=== PATIENT | female | born 1935 | race American Indian/Alaskan Native ===

== ENCOUNTER 2017-01-04 13:49 | Outpatient (CLI) | payer MEDICARE ==
--- NOTE | 2017-01-04 15:02 | Cat Scan Report ---
CT HEAD WITHOUT CONTRAST: HISTORY: Headache. Serial contiguous axial images were obtained through the cranium. Intravenous contrast material was not administered. The ventricles are normal in size and appearance. There is no mass effect or midline shift. No areas of abnormally increased or decreased attenuation are seen. No mass lesion is seen. The mastoid air cells and visualized portions of the sinuses are normal. IMPRESSION: Cranial CT scan within normal limits.
== END 2017-01-04 13:50 | disposition home or self-care (01) ==
LOC: CT 13:49
PROVIDERS: ATTEND Family Medicine
DX: R51 Headache (principal)
CPT/HCPCS: 70450

== ENCOUNTER 2019-02-12 02:39 | Inpatient (IN) | payer MEDICARE ==
[2019-02-12] MEDS ORDERED: ATROVENT IH ONE (02:57)
[2019-02-12] MEDS ORDERED: PROVENTIL IH ONE (02:57)
[2019-02-12] MEDS ORDERED: LASIX IV ONE (03:02)
--- NOTE | 2019-02-12 03:04 | Emergency Department Report ---
ED Shortness of Breath HPI - General Chief Complaint: Medical Clearance Stated Complaint: SHORTNESS OF BREATH Time Seen by Provider: 02/12/19 02:42 Source: EMS, RN notes reviewed, old records reviewed Mode of arrival: Ambulatory Limitations: Altered Mental Status (dementia), Physical Limitation - History of Present Illness Initial Comments: Mrs. Huang is an 83 yo female with hx systolic heart failure, dementia, renal insufficieny, atrial fibrilllation presents with rapid decline, failure to thrive [facility] Under hospice care. Son and daughter provided hx. Mrs. Huang left the hospital last month with certain ab ilities. She was able to walk and feed herself. Since that time, she has declined. Mostly nonverbal. States "I'm fine." Mostly does recognize children. Has required 2 L NC oxygen for several months. Hospice nurse advised children to bring patient to hospital for vomiting, low oxygen and persistent cough. Oxygen 84% on 2 L NC oxygen. Placed on hospice recently by PCP Dr. Mercedes and Physician Coder Dr. Castillo. I reviewed recent cardiology consultation from December. With hx of dementia, family wished to proceed with conservative medical management. HOspice and code status were the considerations at that time. correction documentation reveals full code status. Son and daughter noted mental decline over the past 1 year with memory loss and inability to perform ADLs such as cooking. Before recent hospitalization, children performed rotating 24 hour supervised care on their own in Mrs. Huang's home. She has 8 children. She is DNR status according to children. As reported by children, no CPR, no feeding tube desired. Medical management with antibiotics is appropriate. MD Complaint: shortness of breath, cough -: Gradual, week(s) (3) Severity: moderate Consistency: constant Known History Of: congestive heart failure - Related Data Home Medications Medication Instructions Recorded Confirmed Last Taken Carvedilol [Coreg] 1 tab PO BID 11/02/18 12/22/18 12/22/18 Furosemide [Lasix TAB] 1 tab PO DAILY MDD 7 days 11/02/18 12/22/18 12/22/18 Lisinopril [Zestril TAB] 1 tab PO DAILY 11/02/18 12/22/18 12/22/18 AtorvaSTATin [Lipitor] 20 mg PO QHS 12/22/18 12/22/18 12/21/18 Donepezil [Aricept] 5 mg PO QDAY 12/22/18 12/22/18 12/21/18 K-Dur 20 meq PO DAILY 12/22/18 12/22/18 12/22/18 Previous Rx's Medication Instructions Recorded Last Taken Type Amiodarone [Cordarone 200 MG TAB] 200 mg PO DAILY #30 tablet 12/29/18 Unknown Rx Allergies Allergy/AdvReac Type Severity Reaction Status Date / Time No Known Allergies Allergy Verified 12/22/18 18:42 ED Review of Systems ROS: Stated complaint: SHORTNESS OF BREATH Other details as noted in HPI Comment: Unobtainable due to pts medical conditions (dementia, nonverbal status) ED Past Medical Hx - Past Medical History Previous Medical History?: Yes Hx Hypertension: Yes Hx CVA: Yes (TIA) Hx Heart Attack/AMI: No Hx Congestive Heart Failure: Yes Hx Liver Disease: Yes (cirrhosis) Hx Renal Disease: Yes Hx COPD: Yes Hx Dementia: Yes - Surgical History Past Surgical History?: Yes Hx Appendectomy: Yes - Social History Smoking Status: Former Smoker - Medications Home Medications: Home Medications Medication Instructions Recorded Confirmed Last Taken Type Carvedilol [Coreg] 1 tab PO BID 11/02/18 12/22/18 12/22/18 History Furosemide [Lasix TAB] 1 tab PO DAILY MDD 7 days 11/02/18 12/22/18 12/22/18 History Lisinopril [Zestril TAB] 1 tab PO DAILY 11/02/18 12/22/18 12/22/18 History AtorvaSTATin [Lipitor] 20 mg PO QHS 12/22/18 12/22/18 12/21/18 History Donepezil [Aricept] 5 mg PO QDAY 12/22/18 12/22/18 12/21/18 History K-Dur 20 meq PO DAILY 12/22/18 12/22/18 12/22/18 History Amiodarone [Cordarone 200 MG TAB] 200 mg PO DAILY #30 tablet 12/29/18 Unknown Rx ED Physical Exam - General Limitations: Physical Limitation General appearance: alert, in no apparent distress - Head Head exam: Present: atraumatic, normocephalic - Eye Eye exam: Present: normal appearance - ENT ENT exam: Present: mucous membranes moist - Neck Neck exam: Present: normal inspection. Absent: tenderness - Respiratory Respiratory exam: Present: rales, rhonchi. Absent: respiratory distress, stridor, accessory muscle use, prolonged expiratory - Cardiovascular Cardiovascular Exam: Present: regular rate, normal rhythm, normal heart sounds. Absent: rubs, gallop - GI/Abdominal GI/Abdominal exam: Present: soft, normal bowel sounds. Absent: distended, tenderness, guarding, rebound - Extremities Exam Extremities exam: Present: normal inspection, other (no edema) - Neurological Exam Neurological exam: Present: other (keeps eyes closed, will not respond to questions) - Psychiatric Psychiatric exam: Present: flat affect - Skin Skin exam: Present: warm, dry, intact, normal color. Absent: rash ED Course Vital Signs 02/12/19 02/12/19 02:44 03:10 Temperature 97.4 F L Pulse Rate 70 Pulse Rate [ 20 L Anterior Bilateral] Respiratory 22 Rate Respiratory 72 H Rate [Anterior Bilateral] Blood Pressure 159/94 O2 Sat by Pulse 99 Oximetry ED Medical Decision Making - Lab Data Result diagrams: 02/12/19 03:34 Laboratory Results - last 24 hr 02/12/19 02/12/19 03:34 03:34 Sodium 143 Potassium 4.9 Chloride 106.0 Carbon Dioxide 20 L Anion Gap 22 BUN 35 H Creatinine 2.2 H Estimated GFR 26 BUN/Creatinine Ratio 16 Glucose 80 Calcium 9.6 Total Bilirubin 1.50 H AST 35 ALT 8 Alkaline Phosphatase 62 Troponin T 1.350 H* NT-Pro-B Natriuret Pep 71347 H Total Protein 6.6 Albumin 3.0 L Albumin/Globulin Ratio 0.8 - Radiology Data Radiology results: report reviewed I personally reviewed CXR image which revealed infiltrateds RUL, RML, RLL, suspicious for pneumonia. - Medical Decision Making Mrs. Huang is an 83 yo female with hx of dementia and CHF with rapid functional decline and failure to thrive after discharge from hospital to hospice care. I suspect HCAP considering infiltrates seen on CXR, hx of cough and oxygen requirement. Broad spectrum antibiotics administered in the ED. NSTEMI, given ASA. I spoke extensively with son and daughter regarding the goals of hospice care. Understandably, son and daughter are unsure how to proceed with treatment of future illness considering the newness of this scenario. Admitted to telemetry in guarded condition. Discussed case with Dr. Mercedes who accepted patient to his service. Critical Care Time: Yes Critical care time in (mins) excluding proc time.: 40 Critical care attestation.: If time is entered above; I have spent that time in minutes in the direct care of this critically ill patient, excluding procedure time. 40 minutes of critical care time excluding procedures were used in the care of the patient. I was concerned for increased oxygen requirement. Patient required multiple assessments and interventions. I spoke extensively with family members at the bedside. I reviewed the electronic medical record. I spoke with consultants involved in the care of the patient. ED Disposition Clinical Impression: HCAP (healthcare-associated pneumonia), Acute respiratory failure with hypoxia, Acute on chronic HFrEF (heart failure with reduced ejection fraction), Dementia, NSTEMI (non-ST elevated myocardial infarction), Acute coronary syndrome Disposition: 09 OP ADMIT IP TO THIS HOSP Is pt being admited?: Yes Does the pt Need Aspirin: No Condition: Stable Instructions: Bacterial Pneumonia (ED) Referrals: PRIMARY CARE, [Primary Care Provider] - 3-5 Days
[2019-02-12] MEDS ORDERED: MAXIPIME/NS 2 GM/100 ML 2 GM/100 ML BAG IV SCH ×2 (03:27→18:00)
[2019-02-12] MEDS ORDERED: VANCOMYCIN 1,500 MG in NACL 0.9% 500 ML 500 ML IV ONE ×2 (03:27→21:00)
--- NOTE | 2019-02-12 03:29 | XRay Report ---
PROCEDURE: XR CHEST 1V AP TECHNIQUE: A portable upright view of the chest was obtained. HISTORY: Dyspnea COMPARISONS: 11/05/2018 FINDINGS: The heart is moderately enlarged. The lungs are diffusely congested. There is patchy airspace disease throughout the right lung. There is additional haziness in both lung bases. Small effusions cannot b e excluded. The skeletal structures reveal generalized osteoporosis. IMPRESSION: Cardiomegaly with pulmonary vascular congestion and interstitial edema.. Extensive airspace disease i n the right lung in both lung bases. Possible small effusions also noted. This document is electronically signed by Joseph Wild MD., February 12 2019 03:27:34 AM ET
[2019-02-12] MEDS ORDERED: VANCOMYCIN PHARMACY TO DOSE IV SCH (04:00)
[2019-02-12 04:54] LABS: Calcium 9.6 mg/dL (8.4-10.2)
[2019-02-12] MEDS ORDERED: BABY ASPIRIN PO ONE (05:15)
[2019-02-12 05:23] LABS: Chol/HDL Ratio 3.55 %
[2019-02-12] MEDS ORDERED: ASPIRIN PR ONE (05:37)
[2019-02-12 07:08] LABS: Hematocrit 41.1 % (30.3-42.9); Hemoglobin 13.5 gm/dl (10.1-14.3); Mean Corpuscular HGB Conc 33 % (30-34); Mean Corpuscular Volume 108 fl (79-97); Platelet Count 211 K/mm3 (140-440); Red Blood Count 3.81 M/mm3 (3.65-5.03); Red Cell Distribution Width 16.2 % (13.2-15.2)
[2019-02-12 10:36] LABS: Bacteria,Urine 1+ /HPF (Negative); Bilirubin,Urine NEG (Negative); Blood,Urine NEG (Negative); Color,Urine Yellow (Yellow); Mucus,Urine FEW /HPF; Protein,Urine <15 mg/dL mg/dL (Negative); Urobilinogen,Urine < 2.0 mg/dL (<2.0)
[2019-02-12] MEDS ORDERED: D5W 1,000 ML IV SCH (17:00)
--- NOTE | 2019-02-12 17:41 | History and Physical Report ---
History of Present Illness Date of examination: 02/12/19 Date of admission: 02/12/19 05:23 Chief complaint: Shortness of breath, cough, altered mental status - one day duration History of present illness: Mrs. Huang is an 83 yo female with hx systolic heart failure, dementia, renal insufficieny, atrial fibrilllation presents with rapid decline, failure to thrive [facility]. Under hosp[facility] care. Son and daughter provided hx. Mrs. Huang left the hospital last month with certain abilities. She was able to walk and feed herself. Since that time, she has declined. Mostly nonverbal. States "I'm fine." Mostly does recognize ch ildren. Has required 2 L NC oxygen for several months. Hospice nurse advised children to bring patient to hospital for vomiting, low oxygen and persistent cough. Oxygen 84% on 2 L NC oxygen. Placed on hospice recently by PCP Dr. Mercedes and Interior Design Coordinator Dr. Castillo. I reviewed recent cardiology consultation from December. With hx of dementia, family wished to proceed with conservative medical management. HOspice and code status were the considerations at that time. senior care documentation reveals full code status. Past History Past Medical History: heart failure, other (dementia) Past Surgical History: total knee replacement. denies: cholecystectomy, cataract removal Social history: denies: smoking, alcohol abuse, prescription drug abuse Family history: no significant family history Medications and Allergies Allergies Allergy/AdvReac Type Severity Reaction Status Date / Time No Known Allergies Allergy Verified 12/22/18 18:42 Home Medications Medication Instructions Recorded Confirmed Last Taken Type Carvedilol [Coreg] 1 tab PO BID 11/02/18 02/12/19 12/22/18 History Furosemide [Lasix TAB] 1 tab PO DAILY MDD 7 days 11/02/18 02/12/19 12/22/18 History Lisinopril [Zestril TAB] 1 tab PO DAILY 11/02/18 02/12/19 12/22/18 History AtorvaSTATin [Lipitor] 20 mg PO QHS 12/22/18 02/12/19 12/21/18 History Donepezil [Aricept] 5 mg PO QDAY 12/22/18 02/12/19 12/21/18 History K-Dur 20 meq PO DAILY 02/08/19 04/01/19 02/08/19 History Amiodarone [Cordarone 200 MG TAB] 200 mg PO DAILY #30 tablet 12/29/18 02/12/19 Unknown Rx Active Meds: Active Medications Albuterol/Ipratropium (Duoneb *Not For Prn Use*) 1 ampul IH Q8HRT FERMIN Amiodarone HCl (Cordarone) 200 mg PO DAILY FERMIN Atorvastatin Calcium (Lipitor) 20 mg PO QHS FERMIN Carvedilol (Coreg) mg PO BID FERMIN Donepezil HCl (Aricept) 5 mg PO QDAY FERMIN Enoxaparin Sodium (Lovenox) 30 mg SUB-Q QDAY FERMIN Famotidine (Pepcid) 20 mg IV QDAY FERMIN Cefepime HCl (Maxipime/Ns 2 Gm/100 Ml) 2 gm in 100 mls @ 200 mls/hr IV Q24H FERMIN; Protocol Dextrose (D5w) 1,000 mls @ 100 mls/hr IV DIRECT FERMIN Last Admin: 02/12/19 16:55 Dose: 100 mls/hr Documented by: Aztreonam (Azactam/Ns 1 Gm/50 Ml) 1 gm in 50 mls @ 50 mls/hr IV Q8HR FERMIN; Protocol Cefepime HCl (Maxipime/Ns 2 Gm/100 Ml) 2 gm in 100 mls @ 200 mls/hr IV Q8HR FERMIN; Protocol Dextrose/Sodium Chloride (D5/0.45ns) 1,000 mls @ 75 mls/hr IV DIRECT FERMIN Vancomycin HCl (Vancomycin/Ns 1 Gm/250 Ml) 1 gm in 250 mls @ 166.667 mls/hr IV Q24H FERMIN; Protocol Miscellaneous Medication (K-Dur) 20 meq PO DAILY FERMIN Pneumococcal Polyvalent Vaccine (Pneumovax 23) 0.5 ml IM .ONCE ONE Stop: 02/13/19 12:01 Review of Systems ROS unobtainable: due to mental status All systems: negative () Hematologic/Lymphatic: easy bruising Allergic/Immunologic: urticaria Exam - Physical Exam Narrative exam: Constitutional: Confused, lethargic In no distress Head: Normocephalic atraumatic Eyes: Pupils are equal round and reactive to light Nose: No enlarged turbinates, no septal deviation. Mouth: Moist mucous membranes. Neck: Supple no thyromegaly. No bruit. No JVD Heart: Regular rate and rhythm, S1-S2 normal. No rubs murmurs or gallop Lungs: Decreased. no rales or rhonchi Abdomen: Soft, nontender. Bowel sound are present. Extremities: No edema, no cyanosis, no clubbing. Neuro: Alert oriented Oriented x3. No focal sensory or motor deficit. Skin: No rashes or hyperpigmented spots Musculoskeletal system: No joint pain or swelling Hematological: No petechia or subcutanous hemorrhages. Immunological: No multiple septic spots on the skin Lymphatic: No generalized lymphadenopathy Psychiatry: Euthymic. Calm. - Constitutional Vitals: Temp Pulse Resp BP Pulse Ox 97.7 F 65 11 L 130/66 94 02/12/19 12:49 02/12/19 12:00 02/12/19 12:00 02/12/19 12:00 02/12/19 12:00 Results - Labs CBC & Chem 7: 02/12/19 06:58 02/12/19 03:34 Labs: Abnormal lab results 02/12/19 02/12/19 02/12/19 Range/Units 03:34 03:34 06:58 MCV 108 H (79-97) fl MCH 36 H (28-32) pg RDW 16.2 H (13.2-15.2) % Carbon Dioxide 20 L (22-30) mmol/L BUN 35 H (7-17) mg/dL Creatinine 2.2 H (0.7-1.2) mg/dL Total Bilirubin 1.50 H (0.1-1.2) mg/dL Troponin T 1.350 H* (0.00-0.029) ng/mL NT-Pro-B Natriuret Pep 94982 H (0-900) pg/mL Albumin 3.0 L (3.9-5) g/dL HDL Cholesterol 34 L (40-59) mg/dL Assessment and Plan Mrs. Huang is an 83 yo female with hx systolic heart failure, dementia, renal insufficieny, atrial fibrilllation presents with rapid decline, failure to thrive [facility]. Under hosp[facility] care. Son and daughter provided hx. Mrs. Huang left the hospital last month with certain abilities. She was able to walk and feed herself. Since that time, she has declined. Mostly nonverbal States "I'm fine." Mostly does recognize children. Has required 2 L NC oxygen for several months. - Metabolic encephalopathy Supplemental oxygen Treat underlining RF and other medical conditions - Acute on chronic systolic (congestive) heart failure continue with IV diuresis, ARB and beta raheem Strict Is and Os Daily weight - Dilated cardiomyopathy Rosales Mx as above - New onset Afib with RVR - Hypertenison Controlled on present meds -acute ranl failure - worsening Nephrology consult Likely from diuresis BUN and creatinine noted moderately elevated but no significant change from recent hospitalization in October - Dementia Patient currently on medication will continue same - DVT PPX with Lovenox - Disposition: Patient is DNR continue with conservat
[2019-02-12] MEDS ORDERED: K DUR 20 MEQ PO SCH (17:45)
[2019-02-12] MEDS ORDERED: PEPCID IV SCH (18:00)
[2019-02-12] MEDS ORDERED: AZACTAM/NS 1 GM/50 ML 1 GM/50 ML VIAL IV SCH ×2 (18:00→20:00)
[2019-02-12] MEDS ORDERED: VANCOMYCIN/NS 1 GM/250 ML 1 GM/250 ML BAG IV SCH (18:00)
[2019-02-12] MEDS ORDERED: CORDARONE PO SCH (18:00)
[2019-02-12] MEDS ORDERED: ARICEPT PO SCH (18:00)
[2019-02-12] MEDS ORDERED: LOVENOX SUB-Q SCH (18:00)
[2019-02-12] MEDS ORDERED: D5/0.45NS 1,000 ML IV SCH (18:00)
[2019-02-12] MEDS ORDERED: MAXIPIME/NS 1 GM/100 ML 1 GM/100 ML BAG IV SCH (19:00)
[2019-02-12] MEDS: DUONEB *Not for PRN Use IH SCH ×2 (19:10→23:57)
[2019-02-12] MEDS ORDERED: PEPCID IV ONE (19:19)
[2019-02-12 21:12] VITALS: BP 152/88
[2019-02-12] MEDS ORDERED: COREG PO SCH (22:00)
--- NOTE | 2019-02-13 00:21 | Cat Scan Report ---
PROCEDURE: CT CHEST WO CON HISTORY: shortness of breath FINDINGS: Unenhanced CT of the chest was performed and data was reformatted in the sagittal and coronal planes. There is cardiomegaly. There is a pericardial effusion located primarily inferior to the heart, 1.1 c m in thickness There is a relatively large right pleural effusion and a small left pleural effusion. There are regions of peripheral pulmonary scarring. There is a regions of more consolidative airspace disease in the right upper lobe, right lower lobe left upper lobe and left lower lobe which could re present multifocal pneumonia. In the upper abdomen, there is ascites. There is diffuse subcutaneous body wall edema which likely re presents congestive heart failure. IMPRESSION: Cardiomegaly Pericardial effusion Bilateral pleural effusions right greater than left Multifocal airspace disease which could represent pneumonia This document is electronically signed by Jer Owen MD., February 13 2019 12:18:57 AM ET
--- NOTE | 2019-02-13 01:22 | Event Note ---
Date: 02/13/19 NOTE: I was notified by the patient's nurse at 12.45am that she stopped breathing at about 12:43 AM on 02/13/2019 On exam: -Pupils fixed and dilated -No chest excursion -No breath or heart sounds on auscultation Patient was pronounced by me on 02/13/2019 at 12:47 AM [place]position[place] [facility]
[2019-02-13] MEDS ORDERED: MAXIPIME/NS 2 GM/100 ML 2 GM/100 ML BAG IV SCH (04:00)
[2019-02-13] MEDS ORDERED: K-DUR PO SCH (10:00)
[2019-02-13] MEDS ORDERED: PNEUMOVAX 23 IM ONE (12:00)
[2019-02-13] MEDS ORDERED: AFLURIA QUAD 2018-2019 SYRINGE IM ONE (12:00)
--- NOTE | 2019-03-23 09:58 | Discharge Summary ---
SUMMARY ADMITTING DIAGNOSES: 1. Metabolic encephalopathy. 2. Acute on chronic systolic heart failure. 3. Dilated cardiomyopathy. 4. New onset atrial fibrillation with rapid ventricular response. 5. Hypertension. 6. Acute renal failure. 7. Dementia. HOSPITAL COURSE: The patient is an 83-year-old lady who was on home hospice at [facility], who was brought in by the son and daughter because of rapid decline in her mental status since been transferred to inpatient hospice at [facility]. The patient started vomiting in the detention with persistent cough and hypoxia. The hospice nurse advised that the patient should be brought to the hospital. While in the hospital, the patient's heart rate was improved, in the 90s. Blood pressure was stabilized. Still has very minimal verbal output. She was continued on supplemental oxygen, beta raheem, strict input and output. Acute renal failure was thought to be secondary to diuresis for her dilated cardiomyopathy and she had a BUN of 35 and creatinine of 2.2. The patient was thought to have stopped her breathing at 12:45 a.m. scallop cutter doctor consulted who found to the patient to have fixed dilated pupil. The patient was therefore certified on 02/13/2019 at 12:47 a.m. DIAGNOSES: At the time of , 1. Acute on chronic systolic heart failure. 2. Dilated cardiomyopathy. 3. Atrial fibrillation with rapid ventricular response. 4. Hypertension. 5. Dementia. 6. Acute renal failure. JOB# [id number] OO/NTS
== END 2019-02-13 00:43 ==
LOC: ED 02:39 → 4A 05:23 → 2B-ACE 14:03
PROVIDERS: ADMIT Family Medicine; ATTEND Family Medicine
DX: I21.4 Non-ST elevation (NSTEMI) myocardial infarction (principal); I50.23 Acute on chronic systolic (congestive) heart failure; J96.01 Acute respiratory failure with hypoxia; J18.9 Pneumonia, unspecified organism; G93.41 Metabolic encephalopathy; N17.9 Acute kidney failure, unspecified; J44.0 Chronic obstructive pulmonary disease with (acute) lower respiratory infection; I42.0 Dilated cardiomyopathy; I11.0 Hypertensive heart disease with heart failure; I49.3 Ventricular premature depolarization; I45.10 Unspecified right bundle-branch block; F03.90 Unspecified dementia, unspecified severity, without behavioral disturbance, psychotic disturbance, mood disturbance, and anxiety; R62.7 Adult failure to thrive; Z66 Do not resuscitate; I48.91 Unspecified atrial fibrillation; K74.60 Unspecified cirrhosis of liver; Y95 Nosocomial condition; Z87.891 Personal history of nicotine dependence; Z98.41 Cataract extraction status, right eye; Z98.42 Cataract extraction status, left eye; Z86.73 Personal history of transient ischemic attack (TIA), and cerebral infarction without residual deficits
CPT/HCPCS: 36415; 71045; 71250; 80053; 80061; 81001; 82962; 83880; 84484; 85025; 87040; 90686; 90732; 93005; 93010; 94640; 96365; 96366; 96367; 96368; 96375; G0378; J0692; J1940; J3370; J7040; J7070